=== PATIENT | female | born 1980 | race Caucasian/White ===

== ENCOUNTER 2019-06-10 09:55 | Emergency (ER) | payer BC ==
--- NOTE | 2019-06-10 11:18 | EDM.PDOC ---
ED HPI GENERAL MEDICAL PROBLEM - General Chief Complaint: Laceration Stated Complaint: LEFT THUMB LACERATION Time Seen by Provider: 06/10/19 11:00 Source of Information: Reports: Patient History Limitations: Reports: No Limitations - History of Present Illness INITIAL COMMENTS - FREE TEXT/NARRATIVE: Patient is a 38-year-old female who presents with complaints of a laceration on the volar aspect of her left hand directly below the MCP joint of her thumb. She states that she was cutting with a box sealing machine catcher and it slipped and cut her hand. No excessive bleeding noted. Patient is up-to-date on her tetanus vaccination. Left Hand Pain Score (Numeric/FACES): 4 - Related Data Allergies Allergy/AdvReac Type Severity Reaction Status Date / Time No Known Allergies Allergy Verified 06/10/19 10:02 Home Meds: Home Meds Levocetirizine Dihydrochloride [Xyzal] 5 mg PO DAILY 06/10/19 [History] Past Medical History Cardiovascular History: Reports: Heart Murmur Other Cardiovascular History: Heart ablasion in 2014 Gastrointestinal History: Reports: GERD Musculoskeletal History: Reports: Fracture Other Musculoskeletal History: fractured each foot, bone chip in elbow, sciatic nerve pain Neurological History: Reports: Head Trauma Other Neuro History: knocked unconscious alot in the past, pass out frequently from needles and cuting of flesh. - Past Surgical History HEENT Surgical History: Reports: Oral Surgery Other HEENT Surgeries/Procedures: wisdom teeth extraction. Female Surgical History: Reports: Tubal Ligation Social & Family History - Tobacco Use Smoking Status *Q: Never Smoker - Caffeine Use Caffeine Use: Reports: Coffee - Recreational Drug Use Recreational Drug Use: No ED ROS GENERAL - Review of Systems Review Of Systems: Comprehensive ROS is negative, except as noted in HPI. ED EXAM, SKIN/RASH Exam: See Below Exam Limited By: No Limitations General Appearance: Alert, WD/WN, No Apparent Distress, Anxious Respiratory/Chest: No Respiratory Distress, Lungs Clear, Normal Breath Sounds, No Accessory Muscle Use, Chest Non-Tender Cardiovascular: Normal Peripheral Pulses, Regular Rate, Rhythm, No Edema, No Gallop, No JVD, No Murmur, No Rub Neurological: Alert, Oriented, CN II-XII Intact, Normal Cognition, Normal Gait, Normal Reflexes, No Motor/Sensory Deficits Psychiatric: Normal Affect, Normal Mood Skin: Other (1.5 cm V-shaped laceration to the left volar hand directly below the MCP joint of the thumb. Full range of motion to the hand.) ED SKIN PROCEDURES - Laceration/Wound Repair Left Ventral Hand Appearance: Superficial Distal NVT: Neuro & Vascular Intact Skin Prep: Chlorhexidine (Hibiciens), Saline Exploration/Debridement/Repair: Wound Explored Closed with: Wound Adhesive, Steri-Strips Lac/Wound length In cm: 1.5 Sterile Dressing Applied: Nurse Tetanus Status Addressed: Yes Complications: No Course - Vital Signs Last Recorded V/S: Last Vital Signs Temp 98.1 F 06/10/19 10:06 Pulse 61 06/10/19 10:06 Resp 16 06/10/19 10:06 BP 115/81 06/10/19 10:06 Pulse Ox 100 06/10/19 10:06 - Re-Assessments/Exams Free Text/Narrative Re-Assessment/Exam: On exam, wound is superficial, well approximated, and in an area of low tension. Wound does not gape with movement of the hand. I feel that closure with dermabond and steristrips is appropriate. see procedure notes and discharge instructions as noted. Departure - Departure Time of Disposition: 11:20 Disposition: Home, Self-Care 01 Condition: Fair Clinical Impression: Laceration - Discharge Information *PRESCRIPTION DRUG MONITORING PROGRAM REVIEWED*: No *COPY OF PRESCRIPTION DRUG MONITORING REPORT IN PATIENT THEODORE: No Instructions: Laceration Care, Adult, [id number] Referrals: PCP,Unknown [Ordering Only Provider] - Forms: ED Department Discharge Additional Instructions: You were seen in the emergency department for a 1.5 cm laceration to your left hand. The wound was cleansed and closed with dermabond glue and steri-strips. The wound should be kept clean and dry. Wash with regular soap and water twice daily and then pat dry. If there is a chance that the wound may become contaminated, cover it with a Band-Aid. Otherwise it may be left open to air. The glue should begin to fall off in about 1 week. Watch for signs of infection including redness, swelling, or purulent drainage. If these should occur please follow-up with your primary care provider or return to the emergency department. Sepsis Event Note - Evaluation Sepsis Screening Result: No Definite Risk - Focused Exam Vital Signs: Vital Signs Temp Pulse Resp BP Pulse Ox 06/10/19 10:06 98.1 F 61 16 115/81 100 Date Exam was Performed: 06/10/19 Time Exam was Performed: 20:37
== END 2019-06-10 11:40 | disposition home or self-care (01) ==
LOC: JD.ED 09:55
DX: S61.412A Laceration without foreign body of left hand, initial encounter (principal); W26.0XXA Contact with knife, initial encounter; Y93.89 Activity, other specified
CPT/HCPCS: 12001; 99282; 99282-25